=== PATIENT | female | born 2000 | race Caucasian/White ===

== ENCOUNTER 2022-12-12 14:58 | Emergency (ER) | payer OTHER, SELFPAY ==
[2022-12-12 15:17] VITALS: BP 120/87; PULSE 115; RESP 18; TEMP 37.9; O2SAT 97; BMI 27.5
--- NOTE | 2022-12-12 15:23 | ED.GENADULT ---
HPI - General Adult General Chief complaint: Upper Respiratory Symptoms Stated complaint: Sore throat/Stuffy nose Time Seen by Provider: 12/12/22 15:31 Source: patient Mode of arrival: ambulatory Limitations: no limitations History of Present Illness HPI narrative: 21-year-old female who presents emergency department for evaluation of fever, sore throat, cough x5 days. Patient states that she has been feeling hot and cold but did not have a thermometer. She states she has had a cough which is occasionally productive. She is complaining of a sore throat, she states that hurts to swallow but she is not having difficulty with her secretions, difficulty opening her mouth or change in her voice. She complains of rhinorrhea and nasal congestion. She took Tylenol with no relief for symptoms. She denied chest pain, shortness of breath, dyspnea on exertion, nausea, vomiting or diarrhea. The patient does have seasonal allergies and takes Zyrtec daily. Related Data Previous Rx's Medication Instructions Recorded prednisone 20 mg tablet 40 mg PO DAILY 5 days #10 tabs 12/12/22 Allergies Allergy/AdvReac Type Severity Reaction Status Date / Time No Known Allergies Allergy Verified 12/12/22 15:17 Review of Systems Review of Systems: Yes all other systems are reviewed and are negative [facility] Social History Social History Advance Directives: No Advance Directives Information Provided: No Physical Exam ED Vital Signs: Vital Signs - 24 hr 12/12/22 15:17 Temperature 100.3 F Pulse Rate 115 H Respiratory Rate 18 Blood Pressure 120/87 Pulse Oximetry 97 Oxygen Delivery Method Room Air BMI result Body Mass Index 27.5 Vital signs did reveal a low-grade temperature 100.3 degrees F, elevated pulse of 115. General: Awake, alert, female patient, pleasant, cooperative in no distress HEENT: Head was normal cephalic and atraumatic, pupils were equal round reactive light, sclera contact however normal, mouth revealed moist membranes with posterior erythema but no exudates, uvula is midline, she has no trismus, nares revealed thick green rhinorrhea, tympanic membranes were normal, Neck: Supple with no adenopathy Lungs: Clear to auscultation breath sounds symmetric bilaterally Heart: Regular rate rhythm, normal S1-S2, no murmurs rubs gallops Abdomen: Soft nontender nondistended with normoactive bowel sounds Back: No CVA tenderness Extremities: Moves all extremities symmetrically Neuro: Nonfocal Course Course Course Narrative: RME: 21 yold female presents to the ED for sore throat, fever, headache, and stuffy nose. Low grade fever in triage. Strep, Covid, and Influneza ordered Medications Administered Discontinued Medications Generic Name Dose Route Start Last Admin Trade Name Caydenq PRN Reason Stop Dose Admin Ibuprofen 400 mg 12/12/22 15:46 12/12/22 15:50 Ibuprofen 400 Mg Tablet PO 12/12/22 15:47 400 mg ONCE ONE Administration Prednisone 40 mg 12/12/22 16:01 12/12/22 16:06 Prednisone 20 Mg Tablet PO 12/12/22 16:02 40 mg ONCE ONE Administration Medical Decision Making Medical Decision Making MDM Narrative: 21-year-old female who presents emergency department for evaluation of 5 days of upper respiratory symptoms including occasionally productive cough, rhinorrhea, nasal congestion, sore throat, subjective fever. Physical examination did reveal an elevated pulse and an elevated temperature of 100.3 degrees F. physical examination did reveal posterior erythema with no exudates. Provider triage ordered influenza COVID-19 and rapid strep test. I ordered ibuprofen 400 mg orally for the patient's fever. 1606: My interpretation patient's laboratory evaluation as follows: COVID-19, influenza and rapid strep test were negative Patient most likely has a viral URI/viral syndrome. She was advised to take Tylenol for fever and pain, she was started on prednisone 40 mg once a day for 5 days for her nasal congestion and given her 1st dose here in the emergency department. She was given printed and verbal instructions and discharged home. She is a college student and needs to take a final exam tomorrow but I do not think that she can take this test secondary to her illness and she was given a note stating this fact. Differential Diagnosis Differential diagnosis includes but is not limited to viral pharyngitis, streptococcal pharyngitis, viral URI, bacterial URI Lab Data [facility] Lab Attestation statement: I reviewed the patient's lab results. Labs: Lab Results 12/12/22 12/12/22 12/12/22 Range/Units 15:22 15:23 15:23 COVID-19 (KAMILA) Negative (Negative) COVID-19 Clin Com See Note Influenza Type A (BRIAN) Negative (Negative) Influenza Type B (BRIAN) Negative (Negative) Influenza A & B Note See Note S. pyogenes GrpA BRIAN Negative (Negative) Discharge Plan Discharge Clinical Impression: Upper respiratory infection Patient Disposition: Home, Self-Care Instructions: Viral Syndrome (ED) Additional Instructions: Your COVID-19, influenza and rapid strep test were negative. Your symptoms are most likely caused by a virus. Antibiotics do not have any affect against viruses. Take Tylenol (acetaminophen) 500 mg pills, 2 pills every 6 hours as needed for pain or fever. Take prednisone 20 mg pills, 2 pills once a day for 5 days. While you are taking prednisone, do not take any NSAIDs (Motrin, Advil, ibuprofen, Aleve, naproxen). Continue taking your Zyrtec Make sure you drink plenty of fluid to stay hydrated Sometimes when you have a virus you have no appetite but it is important to eat. You can try a NASEEM diet (is bananas, rice, applesauce, tea and toast). Follow-up with your doctor in 2 days. Please return to the emergency department if your symptoms get worse or if you develop any symptoms that are concerning to you. Prescriptions: New prednisone 20 mg tablet 40 mg PO DAILY 5 Days Qty: 10 0RF Stand Alone Forms: Work/School Release Interventions: ED Discharge Assessment Last Done: 12/12/22 16:10 Discharge Date/Time: 12/12/22 16:10
[2022-12-12 15:46] LABS: COVID-19 Test Negative (Negative); IDNOW Serial# BCCEAD1C
[2022-12-12 15:47] LABS: IDNOW Serial# 9DB6401D; Influenza A Negative (Negative); Influenza B2 Negative (Negative)
[2022-12-12 15:47] LABS: IDNOW Serial# 08D9AD1C; Strep A Nucleic Acid Negative (Negative)
[2022-12-12] MEDS: Ibuprofen 400 MG TABLET PO (15:50)
[2022-12-12] MEDS: predniSONE 20 MG TABLET 40 MG PO (16:06)
== END 2022-12-12 16:10 | disposition home or self-care (01) ==
PROVIDERS: Physician Assistant; Emergency Provider Emergency Medicine Emergency Medical Services
DX: J06.9 Acute upper respiratory infection, unspecified (principal); Z20.822 Contact with and (suspected) exposure to COVID-19; Z20.828 Contact with and (suspected) exposure to other viral communicable diseases
CPT/HCPCS: 87502; 87635; 87651; 99283